=== PATIENT | male | born 1950 | race Caucasian/White ===

== ENCOUNTER 2022-02-09 15:26 | Inpatient (IN) ==
[2022-02-09] MEDS ORDERED: 0.9 % Sodium Chloride 1,000 ML IVC ONE (16:02)
[2022-02-09 16:20] LABS: Basophils % 0.5 %; Eosinophils # 0.4 K/mcL (0.0-0.6); Eosinophils % 6.1 %; Hematocrit 28.9 % (37.5-50.1); Hemoglobin 9.4 g/dL (12.9-16.9); Immature Granulocytes % 0.2 % (0-4); Lymphocytes # 1.5 K/mcL (0.6-4.6); Lymphocytes % 24.7 %; Mean Corpuscular HGB Conc 32.5 g/dL (31.6-35.5); Mean Corpuscular Hemoglobin 28.3 pg (28.0-33.3); Mean Platelet Volume 8.9 fL (9.4-12.4); Monocytes # 0.6 K/mcL (0.0-1.3); Monocytes % 9.1 %; Neutrophils # 3.7 K/mcL (1.6-8.9); Platelet Count 262 K/mcL (140-400); Red Blood Count 3.32 M/mcL (4.19-5.50); Red Cell Distribution Width 14.6 % (11.5-14.5); Segmented Neutrophils % 59.4 %; White Blood Count 6.2 K/mcL (4.3-11.1)
[2022-02-09 18:02] LABS: BUN/Creatinine Ratio 15 (6-26); Blood Urea Nitrogen 58 mg/dL (8-23); Calcium 8.2 mg/dL (8.6-10.3); Carbon Dioxide 20 mEq/L (23-29); Chloride 108 mEq/L (98-107); Glucose 83 mg/dL (70-105); Osmolality,Calculated 297 (280-300); Sodium 136 mEq/L (136-145); Troponin I < 0.03 ng/mL (< 0.04)
[2022-02-09] MEDS ORDERED: Insulin Human Regular 10 UNIT in 0.9 % Sodium Chloride 10 ML IV ONE (18:14)
[2022-02-09] MEDS ORDERED: *HR* Dextrose 50 % in Water (Syg) 50 ML SYRINGE IVP STA (18:14)
[2022-02-09] MEDS ORDERED: Albuterol 2.5 MG/3 ML NEBULIZER IH ONE (18:14)
[2022-02-09] MEDS ORDERED: 0.9 % Sodium Chloride 500 ML IVC ONE (19:55)
[2022-02-09] MEDS ORDERED: Naloxone 0.4 MG/ML INJ IVP PRN (19:56)
[2022-02-09] MEDS ORDERED: Ondansetron 4 MG/2 ML VIAL IVP PRN (19:56)
[2022-02-09 20:23] LABS: Potassium,Urine 28.3 mEq/L; Sodium, Urine 73.3 mEq/L
[2022-02-09 20:26] LABS: Bilirubin,Urine Negative (Negative); Blood,Urine Negative (Negative); Clarity,Urine Clear (Clear); Color,Urine Colorless (Yellow); Glucose,Urine (UA) 30 mg/dL (Normal); Ketones,Urine Negative (Negative); Leukocyte Esterase,Urine Negative (Negative); Mucus,Urine Few per lpf (None-Few); Nitrite,Urine Negative (Negative); PH,Urine 6.5 pH Units (5.0-8.0); Protein,Urine Negative (Neg-Trace); RBC,Urine 0-3 per hpf (0-3); Specific Gravity,Urine 1.009 (1.010-1.025); Urobilinogen,Urine Normal (Normal); WBC,Urine 0-3 per hpf (0-3)
[2022-02-09] MEDS: Calcium Gluconate 1gm/50mL 1 GM/50 ML BAG IVPB SCH ×2 (21:24→22:30)
[2022-02-09] MEDS ORDERED: D5% in Water 1,000 ML IVC PRN (21:33)
[2022-02-09] MEDS ORDERED: Dextrose Gel 15 GM/37.5 ML TUBE PO PRN ×2 (21:33)
[2022-02-09] MEDS ORDERED: *HR* Dextrose 50 % in Water (Syg) 50 ML SYRINGE IVP PRN (21:33)
[2022-02-09 21:58] LABS: Calcium 8.5 mg/dL (8.6-10.3); Potassium 5.5 mEq/L (3.5-5.1)
[2022-02-09] MEDS: *HR* Heparin 5,000 UNIT/ML VIAL SQ SCH (22:31)
[2022-02-09] MEDS: 0.9 % Sodium Chloride 1,000 ML IVC SCH (23:05)
[2022-02-09] MEDS: Insulin LISPRO 300 UNITS/3 ML VIAL SUBQ SCH (23:14)
[2022-02-10 05:21] LABS: INR 1.2; Prothrombin Time 12.9 Seconds (9.4-12.1)
[2022-02-10 05:22] LABS: Magnesium 1.9 mg/dL (1.6-2.6); Phosphorous 5.2 mg/dL (2.7-4.5)
[2022-02-10 05:23] LABS: Calcium 8.4 mg/dL (8.6-10.3); Potassium 5.2 mEq/L (3.5-5.1); Uric Acid 6.6 mg/dL (2.3-7.6)
[2022-02-10] MEDS: Insulin LISPRO 300 UNITS/3 ML VIAL SUBQ SCH ×3 (05:35→16:50)
[2022-02-10] MEDS: *HR* Heparin 5,000 UNIT/ML VIAL SQ SCH ×3 (05:35→20:56)
[2022-02-10 06:16] LABS: Albumin 3.7 g/dL (3.5-5.7); Albumin/Globulin Ratio 1.5 (1.1-2.2); Bilirubin,Indirect 0.3 mg/dL (0.0-1.0); Bilirubin,Total 0.3 mg/dL (0.3-1.0); Globulin 2.5 g/dL (2.4-3.5); Total Protein 6.2 g/dL (6.4-8.9)
[2022-02-10 06:25] LABS: Basophils % 0.5 %; Eosinophils # 0.2 K/mcL (0.0-0.6); Eosinophils % 1.9 %; Hematocrit 31.2 % (37.5-50.1); Hemoglobin 9.7 g/dL (12.9-16.9); Immature Granulocytes % 0.3 % (0-4); Lymphocytes # 1.4 K/mcL (0.6-4.6); Lymphocytes % 18.2 %; Mean Corpuscular HGB Conc 31.1 g/dL (31.6-35.5); Mean Corpuscular Hemoglobin 27.6 pg (28.0-33.3); Mean Corpuscular Volume 88.6 fL (83.0-100.0); Mean Platelet Volume 9.2 fL (9.4-12.4); Monocytes # 0.4 K/mcL (0.0-1.3); Monocytes % 4.4 %; Neutrophils # 5.9 K/mcL (1.6-8.9); Platelet Count 283 K/mcL (140-400); Red Blood Count 3.52 M/mcL (4.19-5.50); Red Cell Distribution Width 14.5 % (11.5-14.5); Segmented Neutrophils % 74.7 %; White Blood Count 7.9 K/mcL (4.3-11.1)
[2022-02-10 06:28] LABS: Thyroid Stimulating Hormone 21.822 mcIU/mL (0.340-5.600)
[2022-02-10] MEDS: 0.9 % Sodium Chloride 1,000 ML IVC SCH ×3 (07:17→22:28)
[2022-02-10] MEDS: Acetaminophen 325 MG TABLET PO PRN (08:46)
[2022-02-10 13:50] LABS: % Iron Saturation 20 % (20-55); Iron 64 mcg/dL (65-175); Transferrin 225 mg/dL (203-362)
[2022-02-10 14:08] LABS: Ferritin 53 ng/mL (20-250)
[2022-02-10 15:31] LABS: Estimated Average Glucose 134 mg/dl; Hemoglobin A1C 6.3 %
[2022-02-10] MEDS ORDERED: amLODIPine 5 MG TABLET PO ONE (16:20)
[2022-02-10] MEDS: Finasteride 5 MG TABLET PO SCH (16:50)
[2022-02-10] MEDS ORDERED: SODIUM ZIRCONIUM CYCLOSILICATE 5 GM POWD.PACK PO ONE (23:04)
[2022-02-11] MEDS: *HR* Heparin 5,000 UNIT/ML VIAL SQ SCH ×3 (05:15→20:10)
[2022-02-11] MEDS: 0.9 % Sodium Chloride 1,000 ML IVC SCH (06:29)
[2022-02-11] MEDS: Insulin LISPRO 300 UNITS/3 ML VIAL SUBQ SCH ×3 (08:02→15:55)
[2022-02-11] MEDS: amLODIPine 5 MG TABLET PO SCH (08:10)
[2022-02-11] MEDS: Finasteride 5 MG TABLET PO SCH (08:10)
[2022-02-11] MEDS: Multivit/Ca/Min/Fe/FA 1 TAB TABLET PO SCH (08:14)
[2022-02-11] MEDS: Acetaminophen 325 MG TABLET PO PRN (08:14)
[2022-02-11 08:15] LABS: Hematocrit 30.9 % (37.5-50.1); Hemoglobin 9.9 g/dL (12.9-16.9); Mean Corpuscular Hemoglobin 27.8 pg (28.0-33.3); Mean Corpuscular Volume 86.8 fL (83.0-100.0); Mean Platelet Volume 8.5 fL (9.4-12.4); Platelet Count 265 K/mcL (140-400); Red Blood Count 3.56 M/mcL (4.19-5.50); Red Cell Distribution Width 14.3 % (11.5-14.5); White Blood Count 7.2 K/mcL (4.3-11.1)
[2022-02-11 08:34] LABS: Potassium 4.8 mEq/L (3.5-5.1)
[2022-02-11] MEDS ORDERED: Magnesium Oxide 400 MG TABLET PO SCH (09:00)
[2022-02-11] MEDS ORDERED: Benzocaine 20% 12 APPL GEL..GRAM. TP PRN (17:48)
[2022-02-12 03:32] LABS: Hematocrit 28.9 % (37.5-50.1); Hemoglobin 9.3 g/dL (12.9-16.9); Mean Corpuscular HGB Conc 32.2 g/dL (31.6-35.5); Mean Corpuscular Hemoglobin 27.6 pg (28.0-33.3); Mean Corpuscular Volume 85.8 fL (83.0-100.0); Mean Platelet Volume 8.7 fL (9.4-12.4); Platelet Count 259 K/mcL (140-400); Red Blood Count 3.37 M/mcL (4.19-5.50); White Blood Count 6.3 K/mcL (4.3-11.1)
[2022-02-12 03:47] LABS: Calcium 8.1 mg/dL (8.6-10.3); Potassium 4.8 mEq/L (3.5-5.1)
[2022-02-12] MEDS: *HR* Heparin 5,000 UNIT/ML VIAL SQ SCH ×3 (05:06→20:02)
[2022-02-12] MEDS: Insulin LISPRO 300 UNITS/3 ML VIAL SUBQ SCH ×3 (07:20→15:41)
[2022-02-12] MEDS: Finasteride 5 MG TABLET PO SCH (08:04)
[2022-02-12] MEDS: amLODIPine 5 MG TABLET PO SCH (08:04)
[2022-02-12] MEDS: Multivit/Ca/Min/Fe/FA 1 TAB TABLET PO SCH (08:05)
[2022-02-13 02:40] LABS: Hematocrit 30.1 % (37.5-50.1); Hemoglobin 9.6 g/dL (12.9-16.9); Mean Corpuscular HGB Conc 31.9 g/dL (31.6-35.5); Mean Corpuscular Hemoglobin 27.8 pg (28.0-33.3); Mean Corpuscular Volume 87.2 fL (83.0-100.0); Mean Platelet Volume 8.9 fL (9.4-12.4); Platelet Count 248 K/mcL (140-400); Red Blood Count 3.45 M/mcL (4.19-5.50); Red Cell Distribution Width 13.9 % (11.5-14.5); White Blood Count 7.7 K/mcL (4.3-11.1)
[2022-02-13 02:59] LABS: Calcium 9.1 mg/dL (8.6-10.3); Magnesium 1.8 mg/dL (1.6-2.6); Phosphorous 5.8 mg/dL (2.7-4.5); Potassium 5.2 mEq/L (3.5-5.1)
[2022-02-13] MEDS: *HR* Heparin 5,000 UNIT/ML VIAL SQ SCH ×3 (05:10→19:53)
[2022-02-13] MEDS: Insulin LISPRO 300 UNITS/3 ML VIAL SUBQ SCH ×3 (07:11→16:34)
[2022-02-13] MEDS: Multivit/Ca/Min/Fe/FA 1 TAB TABLET PO SCH (07:19)
[2022-02-13] MEDS: Finasteride 5 MG TABLET PO SCH (07:19)
[2022-02-13] MEDS: amLODIPine 5 MG TABLET PO SCH (07:19)
[2022-02-13] MEDS ORDERED: AVONEX 30 MCG/0.5 ML IM SCH (09:00)
[2022-02-13] MEDS: Acetaminophen 325 MG TABLET PO PRN (11:07)
[2022-02-13] MEDS: 0.9 % Sodium Chloride 1,000 ML IVC SCH (13:05)
[2022-02-14] MEDS: 0.9 % Sodium Chloride 1,000 ML IVC SCH ×2 (01:59→16:29)
[2022-02-14 02:24] LABS: Hematocrit 28.4 % (37.5-50.1); Hemoglobin 9.4 g/dL (12.9-16.9); Mean Corpuscular HGB Conc 33.1 g/dL (31.6-35.5); Mean Corpuscular Volume 84.5 fL (83.0-100.0); Mean Platelet Volume 8.6 fL (9.4-12.4); Platelet Count 243 K/mcL (140-400); Red Blood Count 3.36 M/mcL (4.19-5.50); White Blood Count 7.9 K/mcL (4.3-11.1)
[2022-02-14 02:51] LABS: Calcium 8.6 mg/dL (8.6-10.3); Potassium 4.8 mEq/L (3.5-5.1)
[2022-02-14] MEDS: *HR* Heparin 5,000 UNIT/ML VIAL SQ SCH ×3 (05:20→20:20)
[2022-02-14] MEDS: Insulin LISPRO 300 UNITS/3 ML VIAL SUBQ SCH ×3 (07:53→19:05)
[2022-02-14] MEDS: Finasteride 5 MG TABLET PO SCH (07:54)
[2022-02-14] MEDS: Multivit/Ca/Min/Fe/FA 1 TAB TABLET PO SCH (07:54)
[2022-02-14] MEDS: amLODIPine 5 MG TABLET PO SCH (07:54)
[2022-02-15 02:07] LABS: Hematocrit 28.2 % (37.5-50.1); Hemoglobin 9.3 g/dL (12.9-16.9); Mean Corpuscular Hemoglobin 27.7 pg (28.0-33.3); Mean Corpuscular Volume 83.9 fL (83.0-100.0); Mean Platelet Volume 9.3 fL (9.4-12.4); Platelet Count 250 K/mcL (140-400); Red Blood Count 3.36 M/mcL (4.19-5.50); Red Cell Distribution Width 13.9 % (11.5-14.5); White Blood Count 7.1 K/mcL (4.3-11.1)
[2022-02-15 02:19] LABS: Calcium 8.5 mg/dL (8.6-10.3); Potassium 4.3 mEq/L (3.5-5.1)
[2022-02-15] MEDS: 0.9 % Sodium Chloride 1,000 ML IVC SCH ×2 (02:26→18:40)
[2022-02-15] MEDS: *HR* Heparin 5,000 UNIT/ML VIAL SQ SCH ×3 (04:59→21:02)
[2022-02-15] MEDS: Finasteride 5 MG TABLET PO SCH (07:35)
[2022-02-15] MEDS: Multivit/Ca/Min/Fe/FA 1 TAB TABLET PO SCH (07:35)
[2022-02-15] MEDS: amLODIPine 5 MG TABLET PO SCH (07:35)
[2022-02-15] MEDS: Insulin LISPRO 300 UNITS/3 ML VIAL SUBQ SCH ×3 (08:05→17:20)
[2022-02-16 03:45] VITALS: PULSE 85
[2022-02-16] MEDS: 0.9 % Sodium Chloride 1,000 ML IVC SCH (05:23)
[2022-02-16] MEDS: *HR* Heparin 5,000 UNIT/ML VIAL SQ SCH (05:24)
[2022-02-16 07:18] VITALS: BP 170/79; TEMP 97.4; O2SAT 100
[2022-02-16] MEDS: Insulin LISPRO 300 UNITS/3 ML VIAL SUBQ SCH (07:36)
[2022-02-16] MEDS: Multivit/Ca/Min/Fe/FA 1 TAB TABLET PO SCH (07:43)
[2022-02-16] MEDS: Finasteride 5 MG TABLET PO SCH (07:43)
[2022-02-16] MEDS: amLODIPine 5 MG TABLET PO SCH (07:43)
== END 2022-02-16 12:01 | disposition home or self-care (01) | DRG 682 ==
LOC: EMEROOARM 15:26 → 2NENU 15:26 → SUATTDRO 19:56 → 2NENU 20:34
PROVIDERS: ADMIT Internal Medicine; ATTEND Internal Medicine